=== PATIENT | female | born 1995 | race Caucasian/White ===

== ENCOUNTER 2020-07-27 04:56 | Emergency (ER) | payer OTHER, SELFPAY ==
[2020-07-27 05:12] VITALS: BP 101/67; PULSE 83; RESP 18; TEMP 36.8; O2SAT 99
[2020-07-27 05:13] VITALS: BP 101/67; O2SAT 98
[2020-07-27 05:16] VITALS: BP 114/73; O2SAT 99
[2020-07-27 05:19] LABS: Add Urine Microscopic? YES; Appearance Urine Cloudy (Clear); Bilirubin Urine Negative (Negative); Blood Urine Negative (Negative); Color Urine Yellow (Yellow); Glucose Urine UA Negative (Negative); Ketones Urine 1+ mg/dL (Negative); Leukocyte Esterase Ur Negative LEU/UL (Negative); Mucus Urine Moderate /lpf; Nitrate Urine Negative (Negative); Protein Urine 1+ mg/dL (Negative); RBC Urine 0-2 /hpf (0-2); Specific Grav Ur 1.024 (1.001-1.035); Squamous Epithelial Cell Urine Many /hpf (Few); Urobilinogen Urine Negative mg/dL (<2.0); WBC Urine 0-3 /hpf
--- NOTE | 2020-07-27 05:25 | ED.NAVMDI ---
HPI - Nausea/Vomiting/Diarrhea General Chief complaint: Nausea/Vomiting/Diarrhea Stated complaint: vomiting, pregant 8 weeks Time Seen by Provider: 07/27/20 04:59 Source: patient Mode of arrival: ambulatory Limitations: no limitations History of Present Illness HPI Narrative: A 25-year-old female presents [facility] with complaints of nausea and vomiting. Patient notes that she is approximately 8 weeks . She is also complaining of excessive nausea and vomiting especially this past week. Patient states that she has been unable to keep anything down including water. She notes that she is not having any abdominal pain or pelvic pain. She also denies any vaginal discharge. Related Data Home Medications Medication Instructions Recorded Confirmed vit no.[id number] tablet 07/27/20 [ Vitamin] Allergies Allergy/AdvReac Type Severity Reaction Status Date / Time No Known Allergies Allergy Mild Verified 07/27/20 05:16 Review of Systems Review of Systems: Narrative: CONSTITUTIONAL: Denies fever, chills, or sweats. EYES: Denies visual changes, redness, or discharge. ENT: Denies rhinorrhea, congestion, sore throat, or otalgia. CARDIOVASCULAR: Denies chest pain, palpitations, or edema. RESPIRATORY: Denies cough or dyspnea. GASTROINTESTINAL: Endorses nausea and vomiting. GENITOURINARY: Denies dysuria or hematuria. SKIN: Denies rash or itching. MUSCULOSKELETAL: Denies back pain, joint pain, or myalgia. NEUROLOGIC: Denies headache, numbness, dizziness, or weakness. PSYCHIATRIC: Denies anxiety or depression. [facility] Social History Social History Gender identity (if verbalized by the patient): Female Exam Narrative: Exam Narrative: GENERAL: Well-appearing, well-nourished, and in no acute distress. HEAD: Normocephalic, atraumatic. EYES: PERRLA and EOMI. ENT: Nares clear, no rhinorrhea or epistaxis. Mucous membranes moist. Oropharynx without tonsillar hypertrophy exudate or other lesions. Bilateral TMs pearly bullock nonbulging NECK: Supple. No adenopathy or masses. No carotid bruits or JVD CHEST: Clear to auscultation. No respiratory distress. No wheezes rales or rhonchi HEART: Regular rate and rhythm. No murmur heard. Normal peripheral pulses. ABDOMEN: Soft, nontender, nondistended, normal active bowel sounds. EXTREMITIES: Normal range of motion. No edema. SKIN: Warm, dry, no rash. NEURO: No focal deficits. Alert and oriented x3. PSYCH: Normal mood and affect. Course Reevaluation(s) Reevaluation #1: Reevaluated patient provided care update. She is resting comfortably. She notes that she feels much better after the IV fluids and Zofran. Patient states that she is ready for discharge. Time: 06:40 Vital Signs Vital signs: Vital Signs Temperature 36.8 C 07/27/20 05:12 Pulse Rate 83 07/27/20 05:12 Respiratory Rate 18 07/27/20 05:12 Blood Pressure 101/67 07/27/20 05:12 Pulse Oximetry 99 07/27/20 05:12 Temperature 36.8 C 07/27/20 05:12 Pulse Rate 83 07/27/20 05:12 Respiratory Rate 18 07/27/20 05:12 Blood Pressure 114/73 07/27/20 05:16 Pulse Oximetry 99 07/27/20 05:16 MDM - Nausea/Vomiting/Diarrhea MDM Narrative Medical decision making narrative: In brief this 25-year-old female presented to the emergency department with complaints of nausea and vomiting secondary to . Patient was given IV fluids and antiemetics. Afterwards she did feel much better. Review of the patient's laboratory data is reassuring. 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 Medical Records Attestation: I reviewed the patient's medical records. Lab Data Attestation: I reviewed the patient's lab results. Result diagrams: 07/27/20 05:22 07/27/20 05:22 Labs: Lab Results 07/27/20 07/27/20 07/27/20 Range/Units 05:06 05:22 05:22 WBC 9.
[2020-07-27] MEDS: DEXTROSE 5%/LACTATED RINGERS 1,000 ML 999 ML IV CONT (05:28)
[2020-07-27 05:32] LABS: Basophils Percent Auto 0.2 % (0.2-1.2); Eosinophils Percent Auto 0.4 % (0-4.4); Hematocrit 36.6 % (37.0-47.0); Hemoglobin 12.5 g/dL (12.0-15.0); Immature Granulocyte Absolute 0.03 K/mm3 (0.00-0.031); Immature Granulocyte Percent A 0.3 % (0-0.5); Lymphocytes Absolute Auto 2.15 K/mm3 (0.9-3.2); Lymphocytes Percent Auto 23.5 % (18.3-44.2); Mean Corpuscular HGB Conc 34.2 g/dl (32-36); Mean Platelet Volume 10.3 fl (7.4-10.4); Monocytes Absolute Auto 0.5 K/mm3 (0.1-0.6); Monocytes Percent Auto 5.6 % (2.6-8.5); Neutrophils Absolute Auto 6.4 K/mm3 (1.3-6.7); Platelet Count Result 216 k/mm3 (150-375); Red Blood Count 4.16 M/mm3 (4.2-5.4); Red Cell Distribution Width 11.9 % (11.5-14.5); White Blood Count 9.1 K/mm3 (4.5-10.0)
[2020-07-27 05:41] LABS: Anion Gap 8 mmol/L (8-16); Blood Urea Nitrogen 8 mg/dL (7-17); Calcium 9.6 mg/dL (8.4-10.2); Carbon Dioxide 23 mmol/L (22-30); Chloride 103 mmol/L (98-107); Estimated CRCL calculation 96 ml/min; Estimated Glomerular Filt Rate > 60; Glucose 108 mg/dL (65-105); Potassium 3.8 mmol/L (3.4-5.0); Sodium 134 mmol/L (137-145)
[2020-07-27] MEDS: ONDANSETRON INJ 4 MG/2 ML VIAL IV PUSH (06:13)
--- NOTE | 2020-07-27 06:17 | PC.NURSE ---
Pt up to bathroom to void.
--- NOTE | 2020-07-27 06:33 | PC.NURSE ---
Pt ambulatory to [facility] again.
== END 2020-07-27 06:50 | disposition home or self-care (01) ==
PROVIDERS: Emergency Provider Emergency Medicine; PCP Obstetrics & Gynecology
DX: O21.9 Vomiting of pregnancy, unspecified (principal); Z3A.08 8 weeks gestation of pregnancy
CPT/HCPCS: 36415; 80048; 81001; 84702; 85025; 96361; 96374; 99284; J2405; J7121

== ENCOUNTER 2020-07-30 11:54 | Outpatient (CLI) | payer OTHER, SELFPAY ==
--- NOTE | ~2020-07-30 | US_ITS ---
EXAMINATION: US OB <= 14 weeks fetus DATE: 07/30/2020 12:35 INDICATION: Maternal care for problem. Elevated hCG for age. TECHNIQUE: Real-time pelvic ultrasound utilizing both a transvaginal and transabdominal probe was pe rformed. The interpreting radiologist was not present for the study. COMPARISON: None. FINDINGS: The uterus measures 13.0 x 8.5 x 6.8 cm. There is an intrauterine gestational sac. A yolk sac and fe karol pole are identified. The crown rump length measures 1.3 cm, which correlates with an estimated ge stational age of 8 weeks and 0 days. heart motion is identified measuring 167 beats per minute (bpm) by M-mode Doppler. The right ovary measures 2.7 x 2.7 x 2.7 cm. And 1.5 cm thick-walled centrally anechoic right corpus luteum cyst. The left ovary measures 3.5 x 2.8 x 2.0 cm. There is no free fluid in the pelvis. IMPRESSION: 1. Single living fetus with heart rate of 167 bpm. 2. Gestational age by ultrasound of 8 weeks 0 day(s) +/- 4 day(s) with ultrasound estimated date of delivery (ABE) of 03/11/2021. Reviewed, dictated and finalized at location B. RINGER IMPRESSION: 1. Single living fetus with heart rate of 167 bpm. 2. Gestational age by ultrasound of 8 weeks 0 day(s) +/- 4 day(s) with ultraso und estimated date of delivery (ABE) of 03/11/2021.
== END 2020-07-30 11:55 | disposition home or self-care (01) ==
PROVIDERS: PCP Obstetrics & Gynecology; Visit Provider Obstetrics & Gynecology
DX: Z34.91 Encounter for supervision of normal pregnancy, unspecified, first trimester (principal); Z3A.01 Less than 8 weeks gestation of pregnancy
CPT/HCPCS: 76801